=== PATIENT | female | born 2005 | race African-American/Black ===

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

== ENCOUNTER 2023-05-05 16:21 | Emergency (ER) | payer OTHER ==
[2023-05-05] MEDS ORDERED: Metoclopramide HCl 10 MG (2 mL) VIAL ONE (17:29)
[2023-05-05] MEDS ORDERED: Sodium Chloride 0.9% 1,000 ML ONE (17:29)
== END 2023-05-05 19:04 | disposition home or self-care (01) ==
LOC: NAV ERS 16:21
DX: O99.891 Other specified diseases and conditions complicating pregnancy (principal); R51.9 Headache, unspecified; Z3A.01 Less than 8 weeks gestation of pregnancy
CPT/HCPCS: 96374; J2765; J7050

== ENCOUNTER 2023-05-14 17:22 | Emergency (ER) | payer OTHER ==
[2023-05-14 18:29] LABS: #Basophils 0.1 thou/uL (0.0-0.2); #Eosinphils 0.1 thou/uL (0.0-0.7); #Lymphocytes 1.7 thou/uL (1.20-3.40); #Monocytes 0.4 thou/uL (0.11-0.59); #Neutrophils 2.7 thou/uL (1.40-6.50); %Basophils 1.1 % (0.0-1.0); %Eosinophils 1.6 % (0.0-10.0); %Lymphocytes 33.8 % (28.0-48.0); %Monocytes 8.6 % (0.0-4.0); %Neutrophils 54.9 % (31.0-61.0); Hemoglobin 11.7 g/dL (12.0-16.0); Mean Corpuscular HGB CONC 32.6 g/dL (32.0-36.0); Mean Corpuscular Hemoglobin 26.8 pg (25.0-35.0); Mean Corpuscular Volume 82.1 fl (78.0-98.0); Mean Platelet Volume 7.9 fL (7.4-10.4); Platelet Count 298 10x3/uL (130-400); RBC Distribution Width 16.2 % (11.5-14.5); Red Blood Cell (RBC) Count 4.39 mill/uL (4.00-5.20); White Blood Cell (WBC) Count 4.9 10x3/uL (4.8-10.8)
[2023-05-14 18:57] LABS: ALT (SGPT) 8 U/L (8-55); AST (SGOT) 13 U/L (5-34); Albumin 3.8 g/dL (3.5-5.0); Alkaline Phosphatase 94 U/L (40-100); Anion Gap 10 mmol/L (10-20); BUN (Urea Nitrogen) 4 mg/dL (7.0-18.7); Bilirubin, Total 0.6 mg/dL (0.2-1.2); Calc. Creatinine Clearance 0 mL/min (70-130); Calcium 9.1 mg/dL (7.8-10.44); Carbon Dioxide 23 mmol/L (22-29); Chloride 105 mmol/L (98-107); Estimated GFR 123; Globulin 2.9 g/dL (2.4-3.5); Glucose 83 mg/dL (70-105); Lipase 15 U/L (8-78); Protein, Total 6.7 g/dL (6.0-8.3); Sodium 134 mmol/L (136-145)
== END 2023-05-14 21:09 | disposition short-term general hospital (02) ==
LOC: NAV ERS 17:22
DX: O20.9 Hemorrhage in early pregnancy, unspecified (principal); Z3A.01 Less than 8 weeks gestation of pregnancy; I10 Essential (primary) hypertension; Z87.891 Personal history of nicotine dependence
CPT/HCPCS: 80053; 83690; 84702; 85025; 99284

== ENCOUNTER 2023-07-25 11:00 | Emergency (ER) | payer OTHER, BC | END 2023-07-25 12:50 | disposition home or self-care (01) | LOC: NAV ERS 11:00 | DX: O99.891 Other specified diseases and conditions complicating pregnancy (principal); M25.561 Pain in right knee; R10.9 Unspecified abdominal pain; I10 Essential (primary) hypertension; Z87.891 Personal history of nicotine dependence; Z3A.17 17 weeks gestation of pregnancy | CPT/HCPCS: 99283 ==

== ENCOUNTER 2023-09-15 12:17 | Emergency (ER) | payer BC ==
[2023-09-15 12:45] LABS: Bilirubin Negative (Negative); Blood, Urine Trace (Negative); Clarity Slightly Cloudy (Clear); Glucose, Urine (Dipstick) Negative (Negative); Ketone, Urine Negative (Negative); Leukocyte Small (Negative); Nitrite Negative (Negative); Protein, Urine (Dipstick) 30 mg/dL (Neg-Trace); pH, Urine 7.5 (5.0-9.0)
[2023-09-15 13:00] LABS: Bacteria/HPF Rare-Few HPF (None Seen); CAUTI Indications for Culture Pregnancy; WBC/HPF 21-50 HPF (0-3)
[2023-09-15 13:01] LABS: Trichomonas/HPF 2+ HPF (None Seen)
[2023-09-15 13:02] LABS: Urine Culture Reflex Yes Yes
[2023-09-15] MEDS ORDERED: Ondansetron PF 4 MG/2 ML Vial ONE (13:08)
[2023-09-15] MEDS ORDERED: Sodium Chloride 0.9% 1,000 ML ONE (13:08)
[2023-09-15 13:11] LABS: #Lymphocytes 1.2 thou/uL (1.20-3.40); #Monocytes 0.4 thou/uL (0.11-0.59); %Basophils 0.6 % (0.0-1.0); %Eosinophils 0.7 % (0.0-10.0); %Lymphocytes 18.5 % (28.0-48.0); %Monocytes 5.4 % (0.0-4.0); %Neutrophils 74.7 % (31.0-61.0); Hematocrit 31.3 % (36.0-47.0); Hemoglobin 9.9 g/dL (12.0-16.0); Mean Corpuscular HGB CONC 31.6 g/dL (32.0-36.0); Mean Corpuscular Hemoglobin 26.7 pg (25.0-35.0); Mean Corpuscular Volume 84.3 fl (78.0-98.0); Mean Platelet Volume 9.3 fL (7.4-10.4); Platelet Count 204 10x3/uL (130-400); RBC Distribution Width 12.9 % (11.5-14.5); Red Blood Cell (RBC) Count 3.71 mill/uL (4.00-5.20); White Blood Cell (WBC) Count 6.6 10x3/uL (4.8-10.8)
[2023-09-15 13:17] LABS: Amphetamine Not Detected (NotDetected); Barbiturates Screen Not Detected (NotDetected); Benzodiazepine Screen Not Detected (NotDetected); Cocaine Metabolite Screen Not Detected (NotDetected); Methadone Not Detected (NotDetected); Methamphetamine Not Detected (NotDetected); Opiate Screen Not Detected (NotDetected); Oxycodone Screen Not Detected (NotDetected); Phencyclidine (PCP) Not Detected (NotDetected); THC/Cannabinoid Screen Detected (NotDetected); Tricyclic Screen Not Detected (NotDetected)
[2023-09-15 13:30] LABS: ALT (SGPT) Less than 7 U/L (8-55); AST (SGOT) 11 U/L (5-34); Albumin 3.4 g/dL (3.5-5.0); Alkaline Phosphatase 103 U/L (40-100); Anion Gap 15 mmol/L (10-20); BUN (Urea Nitrogen) 5 mg/dL (7.0-18.7); Bilirubin, Total 0.9 mg/dL (0.2-1.2); Calc. Creatinine Clearance 0 mL/min (70-130); Carbon Dioxide 20 mmol/L (22-29); Chloride 106 mmol/L (98-107); Estimated GFR 130; Globulin 3.1 g/dL (2.4-3.5); Glucose 81 mg/dL (70-105); Lipase 16 U/L (8-78); Potassium 3.6 mmol/L (3.5-5.1); Protein, Total 6.5 g/dL (6.0-8.3); Sodium 137 mmol/L (136-145)
[2023-09-15] MEDS ORDERED: Azithromycin 250 MG TAB ONE (13:53)
[2023-09-15] MEDS ORDERED: Sodium Chloride 0.9% 100 ML ONE (13:54)
[2023-09-15] MEDS ORDERED: cefTRIAXone (ROCEPHIN) 250 MG VIAL ONE (13:54)
[2023-09-16 00:22] LABS: Chlam.trachomatis by PCR,Urine Not Detected (NotDetected); GC N.gonorrhoeae PCR,UrineVOID Not Detected (NotDetected)
== END 2023-09-15 14:34 | disposition home or self-care (01) ==
LOC: NAV ERS 12:17
DX: O98.312 Other infections with a predominantly sexual mode of transmission complicating pregnancy, second trimester (principal); A59.01 Trichomonal vulvovaginitis; A08.4 Viral intestinal infection, unspecified; M24.20 Disorder of ligament, unspecified site; Z3A.25 25 weeks gestation of pregnancy
CPT/HCPCS: 80053; 80306; 81001; 83690; 85025; 87086; 87491; 87591; 96361; 96365; 96375; J0696; J2405; J3490; J7050